=== PATIENT | male | born 1965 | race Caucasian/White ===

== ENCOUNTER 2024-03-05 09:18 | Outpatient (CLI) | payer OTHER, SELFPAY | END 2024-03-05 09:19 | disposition home or self-care (01) | LOC: AMB 03-19 18:03 | PROVIDERS: Visit Provider Family Medicine | DX: R56.9 Unspecified convulsions (principal) | CPT/HCPCS: A0425; A0427 ==

== ENCOUNTER 2024-03-05 10:05 | Emergency (ER) | payer OTHER, SELFPAY ==
[2024-03-05 10:10] VITALS: BP 138/86; PULSE 96; RESP 18; TEMP 36.4; O2SAT 98; BMI 27.6
--- NOTE | 2024-03-05 10:27 | ED_ITS ---
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 he fell back and hit his right shoulder on a metal stud. did have a hard hat on. was able to get the glucose powder in his nose just prior to his loc. was noted to have a brief seizure and then was out of it for approx. 10 min . ems was called. bs per his Nex[employer] was low 50s prior to the seizure. ems reported bs 102 and then 134 at the scene. has had juice. insulin pump off. has had a hx of blood sugars dropping in the past and remote seizure ~10 years ago. 58 year old man presenting to the emergency department following what sounds to have been seizure related to hypoglycemic episode. Began to feel lightheaded which he admits typically would be around blood sugar of 60. His Dexcom or continuous monitoring glucose read in the 80s. Double checking though with his blood sugar was in the 50s. He has since recalibrated his monitor. This is not the 1st time there has been this discrepancy. But knowing that he was feeling lightheaded did get some glucose powder into his nose before he passed out. Is having some left shoulder pain having struck it on a metal stud or 2 x 4. He is left-handed. Does not feel like he hit his head specifically. Subsequent seizure was observed. Care has been challenged by traveling for construction various locations. Was diagnosed as a diabetic 10 years ago and later initiated on insulin. Earlier today he did place a new insulin pod. This is also a new treatment for him. Calibrated his monitor at that time. Also has a history of atrial fibrillation. History of seizure in the past with low blood sugar. Sounds like this was around the time of diagnosis. He does not recall evaluation for primary seizure disorder. Apparently have been a number of times where his continuous monitoring is reading much higher than actual. He is quite attuned to his symptoms however and at what glucose level he might have said symptoms. Related Data Allergies Allergy/AdvReac Type Severity Reaction Status Date / Time No Known Drug Allergies Allergy Verified 03/05/24 10:09 Review of Systems Status of ROS: Reports: 6 or more systems reviewed and unremarkable except as noted in History and below PFS PFSH Social History Smoking Status: Never smoker Do you use any of these nicotine containing products: None Second hand tobacco smoke exposure: No How often do you have a drink containing alcohol: 2-3 times a week How many standard drinks containing alcohol do you have on a typical day: 5 or 6 How often do you have six or more drinks on one occasion: Weekly AUDIT-C Alcohol total score: 8 Non-prescribed substance use: denies use service: No Exam Narrative: Exam Narrative: Pleasant. NAD. Does appear little bit tired. Conversing easily, fluidly. In work attire. Pupils are equal at 3 mm in appropriately reactive. I do not appreciate nystagmus. Head looks atraumatic. Neck is supple nontender. Back nontender. Moving all extremities except for his left arm without difficulty. Has bit his tongue right mid top side. Not actively bleeding and will not require repair. Abdomen is soft and nontender. Lungs are clear. Heart is in elevated rate but regular rhythm. A little weak to external rotation of the left shoulder. Sore to palpation of the anterior aspect. Weak also to empty can testing. Rather sore to overhead raise. Const: Vital Signs, click to edit/add: Vital Signs - 24 hr 03/05/24 13:35 03/05/24 13:36 Pulse Rate [Pulse Oximeter] 105 H Respiratory Rate 18 Blood Pressure [Ri ght Upper Arm] 160/95 H Pulse Oximetry 97 96 Oxygen Delivery Me thod Room Air Documenting provider has reviewed patient's vital signs: yes Course Vital Signs Vital signs: Initial Vital Signs Temperature 97.6 F 03/05/24 10:10 Temperature Source Temporal Artery Scan 03/05/24 10:10 Pulse Rate 96 03/05/24 10:10 Pulse Strength 0+ Absent 03/05/24 10:10 Respiratory Rate 18 03/05/24 10:10 Blood Pressure 138/86 03/05/24 10:10 Blood Pressure Mean 103 03/05/24 10:10 Blood Pressure Position Supine 03/05/24 10:10 Pulse Oximetry 98 03/05/24 10:10 Oxygen Delivery Method Room Air 03/05/24 10:10 Vital Signs Temperature 97.6 F 03/05/24 10:10 Pulse Rate 96 03/05/24 10:10 Respiratory Rate 18 03/05/24 10:10 Blood Pressure 138/86 03/05/24 10:10 Pulse Oximetry 98 03/05/24 10:10 Oxygen Delivery Method Room Air 03/05/24 10:10 Temperature 97.6 F 03/05/24 10:10 Pulse Rate 105 H 03/05/24 13:36 Respiratory Rate 18 03/05/24 13:36 Blood Pressure 160/95 H 03/05/24 13:36 Pulse Oximetry 96 03/05/24 13:36 Oxygen Delivery Method Room Air 03/05/24 13:36 Medications Administered Medications: Discontinued Medications Generic Name Dose Route Start Last Admin Trade Name Freq PRN Reason Stop Dose Admin Sodium Chloride 1,000 mls @ 1,000 mls/hr 03/05/24 10:49 03/05/24 12:15 0.9 % Sodium Chloride 1000 Ml IV 03/05/24 11:48 Infused .Q1H ONE Infusion Ibuprofen 800 mg 03/05/24 13:10 03/05/24 13:31 Ibuprofen 400 Mg Tablet PO 03/05/24 13:11 800 mg ONCE ONE Administration Insulin Aspart 4 unit 03/05/24 11:50 03/05/24 12:21 Insulin Aspart 100 Unit/Ml SUBCUT 03/05/24 11:51 4 unit ACHS ONE Administration Insulin Glargine 20 unit 03/06/24 09:00 03/05/24 13:28 Insulin Glargine,Hum.Rec.Anlog 100 Unit/Ml Insuln.Pen SUBCUT 20 unit DAILY RYAN Administration Medical Decision Making MDM Narrative Medical decision making narrative: Does not appear that has a primary seizure disorder. As he describes it a seizure in this case would not be unexpected. Does not appear that needs evaluation for seizure disorder otherwise. Does not appear to have sustained significant head injury. Tongue injury consistent with noted seizure. Closely follow blood sugars, monitor for stability, and look for evidence of infection. Pump to be turned off. Will try to communicate with voice systems engineer. He tells me he has a virtual appointment sometime yet this week. Will do x-ray of left shoulder. Ordered two-view of the left shoulder. Three view done. I did independently review these images. Shoulder is in the socket. I do not appreciate any bony abnormality. AC joint appears to be normal. May have a rotator cuff injury. He thinks it is most likely a contusion of some sort given the mechanism that he describes. I am not in disagreement. Did offer arm sling which he declined. Ibuprofen given. Did connect with Dr. Faina Villegas, voice systems engineer, at [facility] in [place]. Recommendations as expected are to discontinue the pump. Start on 20 units of Lantus given here in the ER before departure and carb counting. Received L normal saline. Treated elevating blood sugar with 4 units of NovoLog as recommended by Mr. Savage. CBC mildly elevated; perhaps not unexpected given seizure as described. Did eat prior to leaving the emergency department. I do not see evidence of infection otherwise. Stable vitals though blood pressure elevated, and easily ambulatory from the emergency department. Dispensed with insulin See patient discharge plan for further discussion Please follow-up with your voice systems engineer tomorrow as scheduled. They would like you to continue to leave the pump off at this time. Return to Lantus 20 units daily and use your NovoLog at 1 unit per 15 g of carbohydrates. I understand you also have a sliding scale you could use as needed. Try to keep mobility going in your shoulder. Can do stretches and reaches up the wall to encourage mobility. I would ice this a couple of times daily over the next few days. I like the ice bag ([employer]er brand available at [facility]) with screw top lid to fill with water and ice. Lab Data Lab results reviewed: Yes I reviewed the patient's lab results Labs: Lab Results 03/05/24 03/05/24 Range/Units 11:10 12:30 WBC 12.20 H (4.50-11.00) K/uL RBC 4.15 L (4.30-5.90) m/uL Hgb 13.1 L (13.5-17.5) gm/dL Hct 38.6 (37.0-53.0) % MCV 93 (80-100) fL MCH 32 (26-34) pg MCHC 34 (32-36) gm/dL RDW Coeff of Iker 12.3 (11.5-15.5) % Plt Count 283 (140-440) K/uL Neut % (Auto) 85.0 H (42.0-72.0) % Lymph % (Auto) 8.7 L (20-44) % [place] % (Auto) 4.4 (0.0-11.0) % Eos % (Auto) 1.3 (0.0-7.0) % Baso % (Auto) 0.4 (0.0-3.0) % Neut # (Auto) 10.40 H (1.7-7.0) K/uL Lymph # (Auto) 1.10 (0.90-2.90) K/uL [place] # (Auto) 0.50 (0.00-0.90) K/UL Eos # (Auto) 0.20 (0.00-0.50) K/uL Baso # (Auto) 0.00 (0.00-0.30) K/uL Abs Immat Gran (auto) 0.00 (0.00-0.30) K/uL Imm/Tot Granulo (auto) 0.2 % Sodium 138 (135-149) mmol/L Potassium 4.0 (3.6-5.1) mmol/L Chloride 106 (96-114) mmol/L Carbon Dioxide 25 (20-32) mmol/L Anion Gap 7 (7-15) mEq/L BUN 20 (7-30) mg/dL Creatinine 0.7 (0.5-1.5) mg/dL Estimated Creat Clear 130.00 Estimated GFR 107 ml/min Glucose 211 H (60-115) mg/dL Calcium 9.4 (8.4-10.6) mg/dL Urine Color Yellow (Yellow) Urine Appearance Clear (Clear) Urine pH 5.5 (5.0-8.5) Ur Specific [place] 1.025 (1.000-1.030) Urine Protein 1+ A (Negative) Urine Glucose (UA) 2+ A (Negative) Urine Ketones 2+ A (Negative) Urine Blood Negative (Negative) Urine Nitrite Negative (Negative) Urine Bilirubin Negative (Negative) Urine Urobilinogen 1.0 (0.2-1.0) Ur Leukocyte Esterase Negative (Negative) Urine RBC 0-2 (0-2) Urine WBC 0-2 (0-5) Ur Squamous Epith Cells Few (None-Few) Urine Bacteria None (None) ECG Data Attestation: I personally reviewed and interpreted this ECG as follows: Discharge Plan Discharge Clinical Impression: Hypoglycemia, Contusion of left shoulder Patient Disposition: Home w/ Parent or Adult Condition: Improved Additional Instructions: Please follow-up with your voice systems engineer tomorrow as scheduled. They would like you to continue to leave the pump off at this time. Return to Lantus 20 units daily and use your NovoLog at 1 unit per 15 g of carbohydrates. I understand you also have a sliding scale you could use as needed. Try to keep mobility going in your shoulder. Can do stretches and reaches up the wall to encourage mobility. I would ice this a couple of times daily over the next few days. I like the ice bag ([employer]er brand available at [facility]) with screw top lid to fill with water and ice. Follow Up/Referrals: Provider,Not a Local [Primary Care Provider] - Stand Alone Forms: [facility] Info Instructions
[2024-03-05 11:05] VITALS: PULSE 98; O2SAT 97
--- NOTE | 2024-03-05 11:18 | CRLHL7_ITS ---
For Patients: As a result of the Century Cures Act, medical imaging exams and procedure reports are released immediately into your electronic medical record. You may view this report before your referring provider. If you have questions, please contact your health care provider. Indication: Anterior shoulder pain Technique: A total of three views of the left shoulder were acquired. Comparison: None Findings: Bones: Alignment is normal. No fractures or bone lesions. Joint spaces: Unremarkable. Soft tissues: Unremarkable. Impression: Normal plain film examination of the left shoulder. Dictated by Jeffrey Gaspar MD @ 03/05/2024 12:37:19 PM (Electronically Signed)
[2024-03-05] MEDS: 0.9 % SODIUM CHLORIDE 1000 ml 1,000 ML IV (11:19)
[2024-03-05 11:24] LABS: Basophils Percent Auto 0.4 % (0.0-3.0); Eosinophils Percent Auto 1.3 % (0.0-7.0); Hematocrit 38.6 % (37.0-53.0); Hemoglobin* 13.1 gm/dL (13.5-17.5); Immature Granulocytes Pct Auto 0.2 %; Lymphocytes Percent Auto 8.7 % (20-44); Mean Corpuscular HGB Conc 34 gm/dL (32-36); Mean Corpuscular Hemoglobin 32 pg (26-34); Mean Corpuscular Volume 93 fL (80-100); Monocytes Percent Auto 4.4 % (0.0-11.0); Platelet Count* 283 K/uL (140-440); RDW Coefficient of Variation % 12.3 % (11.5-15.5); Red Blood Count 4.15 m/uL (4.30-5.90)
[2024-03-05 11:27] LABS: Slide Review Reflex No
[2024-03-05 11:31] LABS: Chloride* 106 mmol/L (96-114); Sodium* 138 mmol/L (135-149)
[2024-03-05 11:34] LABS: Creatinine* 0.7 mg/dL (0.5-1.5); Estimated Glomerular Filt Rate 107 ml/min
[2024-03-05 11:35] LABS: Anion Gap 7 mEq/L (7-15); Blood Urea Nitrogen* 20 mg/dL (7-30); Calcium* 9.4 mg/dL (8.4-10.6); Carbon Dioxide* 25 mmol/L (20-32); Glucose* 211 mg/dL (60-115)
[2024-03-05] MEDS: INSULIN ASPART 100 UNIT/ML SUBCUT (12:21)
--- NOTE | 2024-03-05 12:41 | ED.NURSE ---
Patient given ham sandwich and 4 units of regular insulin. POC FSG was 262.
[2024-03-05 12:43] LABS: Appearance Urine Clear (Clear); Bilirubin Urine Negative (Negative); Blood Urine Negative (Negative); Color Urine Yellow (Yellow); Glucose Urine 2+ (Negative); Ketones Urine 2+ (Negative); Leukocyte Esterase Urine Negative (Negative); Nitrite Urine Negative (Negative); Protein Urine 1+ (Negative); Specific Gravity Urine 1.025 (1.000-1.030); pH Urine 5.5 (5.0-8.5)
[2024-03-05 13:04] LABS: RBC Urine 0-2 (0-2); WBC Urine 0-2 (0-5)
[2024-03-05 13:05] LABS: Squamous Epithelial Cell Urine Few (None-Few)
[2024-03-05] MEDS: INSULIN GLARGINE,HUM.REC.ANLOG 100 UNIT/ML INSULN.PEN 20 UNIT SUBCUT (13:28)
[2024-03-05] MEDS: IBUPROFEN 400 MG TABLET 800 MG PO (13:31)
[2024-03-05 13:35] VITALS: O2SAT 97
[2024-03-05 13:36] VITALS: BP 160/95; PULSE 105; RESP 18; O2SAT 96
== END 2024-03-05 13:41 | disposition home or self-care (01) ==
PROVIDERS: Emergency Provider Family Medicine
DX: S40.012A Contusion of left shoulder, initial encounter (principal); W19.XXXA Unspecified fall, initial encounter; E11.65 Type 2 diabetes mellitus with hyperglycemia
CPT/HCPCS: 36415; 73030; 80048; 81001; 82947; 85025; 99284; A9270; J1815; J7030